=== PATIENT | male | born 1960 | race Hispanic/Latino ===

== ENCOUNTER 2017-03-30 00:06 | Emergency (ER) | payer OTHER ==
[2017-03-30 00:06] VITALS: BMI 41.3
[2017-03-30 00:54] VITALS: TEMP 98.1
--- NOTE | 2017-03-30 01:08 | ED PDOC ---
Arrival/HPI - General Chief Complaint: Male Genitourinary Time Seen by Provider: 03/30/17 00:07 Historian: Patient - History of Present Illness Narrative History of Present Illness (Text): 03/30/17 01:08 57 yo M w/ PMH of DM and HTN, present with dysuria since yesterday. Patient states that he has had similar symptoms the past and was diagnosed with an ear infection and was treated with antibiotics. Otherwise denies any fever, chills, back pain, nausea, vomiting, abdominal pain. Has no additional complaints at this time. PMD Katherin Past Medical History - Provider Review Nursing Documentation Reviewed: Yes - Infectious Disease Hx of Infectious Diseases: None - Tetanus Immunization Tetanus Immunization: Unknown - Cardiac Hx Pacemaker: No - Neurological Hx Paralysis: No - HEENT Hx HEENT Disorder: Yes (glasses) - Endocrine/Metabolic Hx Diabetes Mellitus Type 2: Yes - Hematological/Oncological Hx Blood Transfusions: No Hx Blood Transfusion Reaction: No - Musculoskeletal/Rheumatological Hx Musculoskeletal Disorders: No - Genitourinary/Gynecological Hx Genitourinary Disorders: Yes Hx Urinary Tract Infection: Yes - Psychiatric Hx Emotional Abuse: No Hx Physical Abuse: No Hx Substance Use: No - Past Surgical History Past Surgical History: No Previous - Surgical History Hx Cardiac Catheterization: Yes ("years ago" negative) - Anesthesia Hx Anesthesia Reactions: No Hx Malignant Hyperthermia: No - Suicidal Assessment Feels Threatened In Home Enviroment: No Family/Social History - Physician Review Nursing Documentation Reviewed: Yes Family/Social History: No Known Family HX Smoking Status: Never Smoked Hx Alcohol Use: No Hx Substance Use: No Hx Substance Use Treatment: No Allergies/Home Meds Allergies/Adverse Reactions: Allergies No Known Allergies Allergy (Verified 03/30/17 00:17) Home Medications: Home Meds Medication Instructions Recorded Confirmed Atorvastatin Calcium [Lipitor] 20 mg PO QAM 02/12/12 05/25/16 Glimepiride [amaRYL] 4 mg PO QAM 10/03/15 05/25/16 Ramipril [Altace] 10 mg PO QAM 10/03/15 05/25/16 Aspirin [Ecotrin] 81 mg PO DAILY 05/24/16 05/25/16 Clopidogrel [Plavix] 75 mg PO DAILY 05/24/16 05/25/16 MetFORMIN [glucOPHAGE] 1,000 mg PO BID 05/24/16 05/24/16 Review of Systems - Review of Systems Constitutional: Normal. absent: Fatigue, Weight Change, Fevers Respiratory: Normal. absent: SOB, Cough, Sputum Cardiovascular: Normal. absent: Chest Pain, Palpitations, Edema Gastrointestinal: Normal. absent: Abdominal Pain, Stool Changes, Constipation, Vomiting Genitourinary Male: Normal, Dysuria. absent: Frequency, Hematuria Physical Exam - Physical Exam Narrative Physical Exam (Text): 03/30/17 01:09 GENERAL APPEARANCE: Patient is awake, alert, oriented x 3, in no acute distress. SKIN: Warm, dry; (-) cyanosis. EYES: (-) conjunctival pallor, (-) scleral icterus. ENMT: Mucous membranes moist. NECK: (-) tenderness, (-) stiffness, (-) lymphadenopathy. CHEST AND RESPIRATORY: (-) rales, (-) rhonchi, (-) wheezes; breath sounds equal bilaterally. HEART AND CARDIOVASCULAR: (-) irregularity; (-) murmur, (-) gallop. ABDOMEN AND GI: (-) distention. Bowel sounds active; (-) tenderness, (-) guarding, (-) rebound, (-) palpable masses, (-) CVA tenderness. EXTREMITIES: (-) deformity, (-) edema, (+) distal pulses. NEURO AND PSYCH: Mental status as above; (-) focal findings. Vital Signs Temp Pulse Resp BP Pulse Ox 03/30/17 00:53 98.1 F 74 17 152/92 H 100 Medical Decision Making ED Course and Treatment: 03/30/17 01:09 57 yo M w/ PMH of DM and HTN, present with dysuria since yesterday. Plan : - UA - Urine cx 03/30/17 01:30 UA +UTI, urine cx pending. Dx of UTI d/w the patient. Medicated with cipro 500 mg PO. Instructed to follow up with primary care physician in 1-2 days without fail. Advised to take medication as prescribed. Return to the emergency room at any time for any new or worsening symptoms. Patient states he fully agrees with and understands discharge instructions. States that he agrees with the plan and disposition. Verbalized and repeated discharge instructions and plan. I have given the patient opportunity to ask any additional questions. - Lab Interpretations Lab Results: Lab Results 03/30/17 01:00: Urine Color Yellow, Urine Appearance Turbid, Urine pH 6.0, Ur Specific [place] >= 1.030, Urine Protein 100 H, Urine Glucose (UA) Negative, Urine Ketones Negative, Urine Blood Large H, Urine Nitrate Positive H, Urine Bilirubin Negative, Urine Urobilinogen 0.2, Ur Leukocyte Esterase Moderate H, Urine RBC 25 - 30, Urine WBC Tntc, Ur Epithelial Cells 0 - 2, Urine Bacteria Many - Medication Orders Current Medication Orders: Ciprofloxacin (Cipro) 500 mg PO ONCE STA PRN Reason: Protocol Stop: 03/30/17 01:30 - PA / CLINICAL LABORATORY SCIENTIST / Resident Statement MD/DO has reviewed & agrees with the documentation as recorded. Disposition/Present on Arrival - Present on Arrival Any Indicators Present on Arrival: No History of DVT/PE: No History of Uncontrolled Diabetes: No Urinary Catheter: No History of Decub. Ulcer: No History Surgical Site Infection Following: None - Disposition Have Diagnosis and Disposition been Completed?: Yes Diagnosis: UTI (urinary tract infection) Disposition Time: 01:32 Patient Plan: Discharge Condition: STABLE Discharge Instructions (ExitCare): Urinary Tract Infection in Men (ED) Print Language: VIETNAMESE Additional Instructions: Thank you for letting us take care of you today. You were treated for UTI. The emergency medical care you received today was directed at your acute symptoms. If you were prescribed any medication, please fill it and take as directed. It may take several days for your symptoms to resolve. Return to the Emergency Department if your symptoms worsen, do not improve, or if you have any other problems. Please contact your doctor in 2 days for re-evaluation and follow up / or call one of the physicians/clinics you have been referred to that are listed on the Patient Visit Information form that is included in your discharge packet. Bring any paperwork you were given at discharge with you along with any medications you are taking to your follow up visit. Our treatment cannot replace ongoing medical care by a primary care provider (PCP) outside of the emergency department. Thank you for allowing the [facility] team to be part of your care today. If you had a urine, or wound culture: It will take several days for the results , if any change in treatment is needed we will contact you. Prescriptions: Ciprofloxacin [Cipro] 500 mg PO BID #14 tab Referrals: Amish Pandey MD [Primary Care Provider] - Follow up with primary Mario,[place]ur[place] C, MD [Staff Provider] - Follow up with primary Forms: [employer] (Hungarian), WORK NOTE
[2017-03-30 01:12] LABS: URINE BILIRUBIN NEGATIVE (NEGATIVE); URINE BLOOD LARGE (NEGATIVE); URINE GLUCOSE (UA) NEGATIVE (NEGATIVE); URINE KETONE NEGATIVE (NEGATIVE); URINE LEUKOCYTE ESTERASE MODERATE Leu/uL (NEGATIVE); URINE PROTEIN 100 mg/dL (<30 mg/dL); URINE UROBILINOGEN 0.2 E.U./dL (<1 E.U./dL)
[2017-03-30 01:15] LABS: URINE APPEARANCE TURBID (CLEAR); URINE COLOR YELLOW (YELLOW)
[2017-03-30 01:26] LABS: URINE BACTERIA MANY (NEG); URINE EPITHELIAL CELLS 0 - 2 /hpf (0-5); URINE RBC 25 - 30 /hpf (0-2); URINE WBC TNTC /hpf (0-6)
[2017-03-30 02:16] VITALS: BP 148/83; PULSE 81; RESP 16; O2SAT 99
== END 2017-03-30 02:16 | disposition home or self-care (01) ==
LOC: ED 00:06
DX: N39.0 Urinary tract infection, site not specified (principal)

== ENCOUNTER 2017-04-22 10:46 | Emergency (ER) | payer OTHER ==
[2017-04-22 11:20] VITALS: TEMP 97.9; O2SAT 99; BMI 39.5
[2017-04-22] MEDS ORDERED: Naproxen 550 mg Tab PO STA (11:21)
--- NOTE | 2017-04-22 11:25 | ED PDOC ---
Arrival/HPI - General Chief Complaint: Lower Extremity Problem/Injury Time Seen by Provider: 04/22/17 10:56 Historian: Patient - History of Present Illness Narrative History of Present Illness (Text): 04/22/17 11:15 Cirilo Aguero is a 57 year old male, whose past medical history includes OK, hypertension, diabetes, and neuropathy, who presents to the emergency department complaining of left knee pain. Patient reports the pain is worse when he extends and bears weight on it. Patient denies fever, shortness of breath, chest pain, or other complaints. Symptom Onset: Gradual Symptom Course: Unchanged Activities at Onset: Light Context: Standing, Walking Past Medical History - Provider Review Nursing Documentation Reviewed: Yes - Infectious Disease Hx of Infectious Diseases: None - Tetanus Immunization Tetanus Immunization: Unknown - Cardiac Hx Cardiac Disorders: Yes Hx OK: Yes Hx Hypertension: Yes - Pulmonary Hx Respiratory Disorders: No - Neurological Hx Neurological Disorder: No - HEENT Hx HEENT Disorder: Yes (glasses) - Renal Hx Renal Disorder: No - Endocrine/Metabolic Hx Endocrine Disorders: Yes Hx Diabetes Mellitus Type 2: Yes - Hematological/Oncological Hx Blood Disorders: No - Integumentary Hx Dermatological Disorder: No - Musculoskeletal/Rheumatological Hx Musculoskeletal Disorders: No - Gastrointestinal Hx Gastrointestinal Disorders: No - Genitourinary/Gynecological Hx Genitourinary Disorders: Yes Hx Urinary Tract Infection: Yes - Psychiatric Hx Psychophysiologic Disorder: No Hx Substance Use: No - Past Surgical History Past Surgical History: No Previous - Surgical History Hx Cardiac Catheterization: Yes ("years ago" negative) - Anesthesia Hx Anesthesia: No Hx Anesthesia Reactions: No Hx Malignant Hyperthermia: No - Suicidal Assessment Feels Threatened In Home Enviroment: No Family/Social History - Physician Review Nursing Documentation Reviewed: Yes Family/Social History: Unknown Family HX Smoking Status: Never Smoked Hx Alcohol Use: No Hx Substance Use: No Hx Substance Use Treatment: No Allergies/Home Meds Allergies/Adverse Reactions: Allergies No Known Allergies Allergy (Verified 04/22/17 11:22) Home Medications: Home Meds Medication Instructions Recorded Confirmed Atorvastatin Calcium [Lipitor] 20 mg PO QAM 02/12/12 04/22/17 Glimepiride [amaRYL] 4 mg PO QAM 10/03/15 04/22/17 Ramipril [Altace] 10 mg PO QAM 10/03/15 04/22/17 Aspirin [Ecotrin] 81 mg PO DAILY 05/24/16 04/22/17 Clopidogrel [Plavix] 75 mg PO DAILY 05/24/16 04/22/17 MetFORMIN [glucOPHAGE] 1,000 mg PO BID 05/24/16 04/22/17 Review of Systems - Review of Systems Constitutional: absent: Fevers Eyes: absent: Vision Changes Respiratory: absent: SOB Cardiovascular: absent: Chest Pain Gastrointestinal: absent: Abdominal Pain Genitourinary Male: absent: Dysuria Musculoskeletal: Other (left knee pain ). absent: Back Pain Neurological: absent: Headache Endocrine: absent: Diaphoresis Physical Exam Vital Signs Reviewed: Yes Vital Signs Temp Pulse Resp BP Pulse Ox 04/22/17 12:40 73 16 128/76 99 04/22/17 11:11 97.9 F 69 18 131/68 99 Temperature: Afebrile Blood Pressure: Normal Pulse: Regular Respiratory Rate: Normal Appearance: Positive for: Well-Appearing, Non-Toxic, Comfortable Pain Distress: None Mental Status: Positive for: Alert and Oriented X 3 Finger Stick Blood Glucose: 195 - Systems Exam Head: Present: Atraumatic, Normocephalic Pupils: Present: PERRL Extroacular Muscles: Present: EOMI Conjunctiva: Present: Normal Lower Extremity: Present: Normal Inspection, NORMAL PULSES, Normal ROM, Tenderness (mild left knee tenderness), Capillary Refill < 2 s. No: Edema, CALF TENDERNESS, Cyanosis, Deformity Neurological: Present: GCS=15, CN II-XII Intact, Speech Normal Skin: Present: Warm, Dry, Normal Color. No: Rashes Psychiatric: Present: Alert, Oriented x 3, Normal Insight, Normal Concentration Medical Decision Making ED Course and Treatment: 04/22/17 15:38 pt placed in splint. normal rom, no erythema. advise outpt fu with ortho. dvt study as per tech. - Lab Interpretations Lab Results: Lab Results 04/22/17 11:18: POC Glucose (mg/dL) 195 H - RAD Interpretation Radiology Orders: 04/22/17 11:21 KNEE LEFT 2 VIEWS (AP & LAT) [RAD] Stat DUPLEX LOWER EXTRM VEIN LEFT [US] Stat Spanish Instructor: Radiologist - Medication Orders Current Medication Orders: Discontinued Medications Naproxen (Anaprox Ds) 550 mg PO STAT STA Stop: 04/22/17 11:22 Last Admin: 04/22/17 11:35 Dose: 550 mg - Scribe Statement The provider has reviewed the documentation as recorded by the Nancy Finch Provider Nancy Attestation: All medical record entries made by the Nancy were at my direction and personally dictated by me. I have reviewed the chart and agree that the record accurately reflects my personal performance of the history, physical exam, medical decision making, and the department course for this patient. I have also personally directed, reviewed, and agree with the discharge instructions and disposition. Disposition/Present on Arrival - Present on Arrival Any Indicators Present on Arrival: No History of DVT/PE: No History of Uncontrolled Diabetes: No Urinary Catheter: No History of Decub. Ulcer: No History Surgical Site Infection Following: None - Disposition Have Diagnosis and Disposition been Completed?: Yes Diagnosis: Knee pain Disposition: HOME/ ROUTINE Disposition Time: 12:20 Condition: STABLE Discharge Instructions (ExitCare): Knee Pain (ED) Additional Instructions: follow up with your doctor.r eturn to emergency room with worsening symptoms or concerns. please see specialist. Prescriptions: Naproxen 500 mg PO BID PRN #14 tab PRN Reason: Pain, Mild (1-3) Referrals: Amish Pandey MD [Primary Care Provider] - Follow up with primary Elver Daugherty DO [Staff Provider] - Follow up with primary Forms: [employer] (Sami)
--- NOTE | 2017-04-22 12:27 | RAD ---
PROCEDURE: Left Knee Radiographs. HISTORY: Pain. COMPARISON: None. FINDINGS: BONES: Normal. No fracture. JOINTS: Normal. No osteoarthritis. JOINT EFFUSION: None. OTHER FINDINGS: None. IMPRESSION: Normal radiographs of the left knee.
[2017-04-22 12:43] VITALS: BP 128/76; PULSE 73; RESP 16
--- NOTE | 2017-04-22 18:53 | US ---
PROCEDURE: Left lower extremity venous US HISTORY: Leg pain and swelling. Evaluate for DVT. PHYSICIAN(S): Keyon Anderson MD. TECHNIQUE: Duplex sonography and color-flow Doppler with graded compression were used to evaluate the deep venous system of the left lower extremity. FINDINGS: The visualized deep venous system of the left lower extremity is sonographically normal and compressible. Normal wave forms and augmentation are seen. There is no sonographic evidence for deep venous thrombosis in the visualized segments of the left lower extremity. IMPRESSION: 1. No sonographic evidence for deep venous thrombosis in the visualized segments of the left lower extremity.
== END 2017-04-22 12:43 | disposition home or self-care (01) ==
LOC: ED 10:46
DX: M25.562 Pain in left knee (principal); I10 Essential (primary) hypertension; E11.9 Type 2 diabetes mellitus without complications; Z79.84 Long term (current) use of oral hypoglycemic drugs; I25.2 Old myocardial infarction

== ENCOUNTER 2017-07-16 10:02 | Day surgery (SDC) | payer BC ==
[2017-07-09 10:50] VITALS: BMI 40.3
[2017-07-16] MEDS ORDERED: Sodium Chloride 0.9% 1,000 ML IV SCH ×2 (12:15→13:45)
[2017-07-16] MEDS ORDERED: Propofol 10 mg/ml Inj (20 ML) ONE (13:11)
[2017-07-16] MEDS ORDERED: Lidocaine 1% Inj (20ml) ONE (13:11)
[2017-07-16 13:54] VITALS: RESP 14; O2SAT 99
[2017-07-16 14:40] VITALS: BP 111/65; PULSE 57; TEMP 97.7
== END 2017-07-16 14:58 | disposition home or self-care (01) ==
LOC: ENDO 10:02
PROVIDERS: ATTEND Internal Medicine Gastroenterology
DX: K25.9 Gastric ulcer, unspecified as acute or chronic, without hemorrhage or perforation (principal); E11.9 Type 2 diabetes mellitus without complications; I10 Essential (primary) hypertension; I25.10 Atherosclerotic heart disease of native coronary artery without angina pectoris
CPT/HCPCS: 43239; 82948; 88305; 88342; J2704; J7040 ×2